=== PATIENT | male | born 1960 | race Caucasian/White ===

== ENCOUNTER 2018-11-02 06:22 | Day surgery (SDC) | payer OTHER ==
[2018-11-02] MEDS: SOD CHLORIDE 0.9% 1,000 ML IV (08:00)
[2018-11-02] MEDS ORDERED: FENTAnyl 50 MCG/ML VIAL (08:27)
[2018-11-02] MEDS ORDERED: CEFAZOLIN 1 GM INJ (08:27)
[2018-11-02] MEDS ORDERED: METOCLOPRAMIDE 10 MG INJ (08:27)
[2018-11-02] MEDS ORDERED: DESFLURANE 15 MIN (08:27)
[2018-11-02] MEDS ORDERED: ONDANSETRON 4 MG INJ (08:27)
[2018-11-02] MEDS ORDERED: MIDAZOLAM 1 MG/ML 2 ML INJ (08:27)
[2018-11-02] MEDS ORDERED: PROPOFOL 20 ML (08:27)
[2018-11-02] MEDS ORDERED: DIPHENHYDRAMINE 50 MG INJ IV (08:30)
[2018-11-02] MEDS ORDERED: OXYCODONE/ACETAMINOPHEN (5/325) TAB PO ×2 (08:30)
[2018-11-02] MEDS ORDERED: ONDANSETRON 4 MG INJ IV (08:30)
[2018-11-02] MEDS ORDERED: MEPERIDINE 25 MG INJ IV (08:30)
[2018-11-02] MEDS ORDERED: LABETALOL HCL 20MG INJ IV (08:30)
[2018-11-02] MEDS ORDERED: hydrALAzine 20 MG INJ IV (08:30)
[2018-11-02] MEDS ORDERED: HYDROmorphONE 1 MG/5 ML IV SYRINGE IV ×3 (08:30)
[2018-11-02] MEDS ORDERED: FENTAnyl 50 MCG/ML VIAL IV ×3 (08:30)
[2018-11-02] MEDS ORDERED: KETOROLAC 30 MG INJ (08:47)
[2018-11-02] MEDS: BUPIVACAINE 0.25% (MPF) 30 ML INJ (09:16)
[2018-11-02] MEDS: HYDROCODONE/APAP (5/325) TAB PO (10:15)
== END 2018-11-02 10:40 | disposition home or self-care (01) ==
LOC: SDS 06:22
DX: L90.5 Scar conditions and fibrosis of skin (principal); I10 Essential (primary) hypertension; E66.01 Morbid (severe) obesity due to excess calories; Z68.39 Body mass index [BMI] 39.0-39.9, adult
CPT/HCPCS: 14301; 88307